=== PATIENT | male | born 1955 | race African-American/Black ===

== ENCOUNTER 2017-09-19 09:48 | Emergency (ER) | payer SELFPAY | END 2017-09-19 10:54 | disposition home or self-care (01) | LOC: ER 09:48 | DX: S46.912A Strain of unspecified muscle, fascia and tendon at shoulder and upper arm level, left arm, initial encounter (principal); X58.XXXA Exposure to other specified factors, initial encounter; Y93.89 Activity, other specified; Y92.89 Other specified places as the place of occurrence of the external cause; Y99.8 Other external cause status | CPT/HCPCS: 99283 ==

== ENCOUNTER 2021-07-10 11:19 | Emergency (ER) | payer MEDICARE, MEDICAID ==
[~2021-07-10] VITALS: Ht 165.1 cm; Wt 81.3 kg
[~2021-07-10 11:19] MED LIST: AMLO-187 PO; ATOR40TA59 PO; BENZ-8 PO; CARV25TA2 PO; CYCL10TA19 PO; DICL50TA4 PO; FURO-68 PO; GLIP2.5T4 PO; IBUP-1060 PO; IRON PO; LEVO250T8 PO; LEXAPRO20 MG PO; LOSA100T14 PO; METF10007 PO; METF500T16 PO; MULT-245 PO; OMEP40CA7 PO; PRED20TA PO; TAMS0.4C97 PO; TRAM50TA PO
[2021-07-10 11:22] VITALS: BP 151/67
[2021-07-10] MEDS ORDERED: ACETAMINOPHEN 500 MG TABLET PO ONE (11:30)
[2021-07-10] MEDS ORDERED: LIDOCAINE/EPI/TETRACAINE TOPICAL GEL 3 ML. TP ONE (11:45)
--- NOTE | 2021-07-10 11:56 | PHYS DOC ---
Past Medical History Past Medical History: Cancer, COPD, Diabetes-Type II, High Cholesterol, H ypertension, DC, Stroke Additional Past Medical Histor: M/W/F dialysis Past Surgical History: No Surgical History Additional Past Surgical Histo: right nephrectomy, back surgery Smoking Status: Never Smoker Alcohol Use: None Drug Use: None General Adult EDM: Chief Complaint: MECHANICAL FALL HPI: HPI: Patient is a 65-year-old male who presents to the emergency department seeking a laceration repair to the left side of his face. Patient states he was walking down some steps when he stumbled, states he did not fall however did bump the left side of his face against the wooden handrail in which he suffered a laceration. Patient states he put direct pressure on the laceration and it quit bleeding. Patient reports his last tetanus immunization was less than 5 years ago. Patient reports a 2 out of 10 pain at the laceration site. Denies loss of consciousness, states he did not become dizzy, denies visual disturbances, denies nausea, vomiting, diarrhea. Denies head pain or neck pain. Denies other physical injuries or pains to his body. Patient states he does take blood pressure medicine and cholesterol medications however does not take a blood thinner, states he does not take aspirin daily. Patient denies other physical complaints or physical concerns. Review of Systems: Review of Systems: 14 body systems of review of systems have been reviewed. See HPI for pertinent positives and negative responses, otherwise all other systems are negative, nonpertinent or noncontributory. Constitutional: Negative except as outlined in HPI above. Skin: Negative except as outlined in HPI above. Eyes: Negative except as outlined in HPI above. HENT: Negative except as outlined in HPI above. Respiratory: Negative except as outlined in HPI above. Cardiovascular: Negative except as outlined in HPI above. GI: Negative except as outlined in HPI above. : Negative except as outlined in HPI above. Musculoskeletal: Negative except as outlined in HPI above. Integument: Negative except as outlined in HPI above. Neurologic: Negative except as outlined in HPI above. Endocrine: Negative except as outlined in HPI above. Lymphatic: Negative except as outlined in HPI above. Psychiatric: Negative except as outlined in HPI above. Heart Score: C/O Chest Pain: No Risk Factors: Risk Factors: DM, Current or recent (<one month) smoker, HTN, HLP, family history of CAD, obesity. Risk Scores: Score 0 - 3: 2.5% MACE over next 6 weeks - Discharge Home Score 4 - 6: 20.3% MACE over next 6 weeks - Admit for Clinical Observation Score 7 - 10: 72.7% MACE over next 6 weeks - Early Invasive Strategies Current Medications: Current Medications Medications (Trade) Dose Ordered Sig/David Start Time Stop Time Status Last Admin Dose Admin Acetaminophen (Tylenol) 1,000 mg 1X ONCE 07/10/21 11:30 07/10/21 11:36 DC 07/10/21 11:42 1,000 MG Tetracaine/ Epinephrine/ Lidocaine (Let ([id number]-[id number]-[id number]) Gel) 3 ml 1X ONCE 07/10/21 11:45 07/10/21 11:50 DC Allergies: Allergies: Allergies Coded Allergies Type Severity Reaction Last Updated Verified No Known Drug Allergies 07/10/21 No Physical Exam: PE: Constitutional: Well developed, well nourished, no acute distress, non-toxic appearance. 65-year-old male in no apparent distress. HENT: Normocephalic, no crepitus appreciated at laceration site, no contusion appreciated at laceration site, patient has a very small superficial skin laceration just lateral to the lateral canthus of the left eye measuring 4 mm, no bleeding appreciated, nonfull skin thickness, no deformities appreciated, no raccoon eyes, no harris sign, bilateral TMs intact and within normal limits. Eyes: Conjunctiva normal, no discharge. Full 6 cardinal eye movements, PERRLA Neck: Normal range of motion, no stridor. No neck pain, no midline spinal cervical pain, full range of motion. Cardiovascular: No cyanosis appreciated, distal cap refill less than 2 seconds. Lungs & Thorax: Patient is in no respiratory distress, no audible adventitious lung sounds appreciated. Abdomen: Nontender, no abnormalities noted. Skin: Warm, dry, no erythema, no rash. See HENT note for focused skin examination Back: No tenderness, no deformities. Extremities: No tenderness, no cyanosis, no clubbing, ROM intact, no edema. Neurologic: Alert and oriented X 3, normal motor function, normal sensory function, no focal deficits noted. Psychologic: Affect normal, judgement normal, mood normal. Current Patient Data: Vital Signs: Vital Signs Date Time Temp Pulse Resp B/P (MAP) Pulse Ox O2 Delivery O2 Flow Rate FiO2 07/10/21 11:22 98.0 96 18 151/67 (95) 98.0 EKG: EKG: [] Radiology/Procedures: Radiology/Procedures: [] Course & Med Decision Making: Course & Med Decision Making Pertinent Labs and Imaging studies reviewed. (See chart for details) 65-year-old male, vital signs reviewed, presents emergency department seeking laceration repair of face. Physical examination consistent with patient's explanation of events. Considered imaging of head however patient did not lose consciousness, did not experience dizziness or syncopal episode, or near syncopal episode, states he "barely bumped his head on the wooden handrail ", did not fall, has no head pain or neck pain except for the site of the laceration. Minor laceration is not full skin thickness, discussed with patient will use Dermabond to repair after cleansing. Patient reports 2 out of 10 head pain at the laceration site only, denies headaches, dizziness, visual disturbances, did not take pain medication prior to arrival to the emergency department. Will give p.o. Tylenol for discomfort. See laceration repair note. Patient gave verbal understanding of glued laceration repair, strict follow-up with primary care for wound evaluation, return to ER precautions and concerns. Signs and symptoms of infection. Patient is amenable to ED discharge planning. Discussed with the patient all findings and diagnostic testing as well as the need to follow-up with their primary care provider for further evaluation and treatment or return to the ED if any new or worsening symptoms. Strict return precautions were also discussed at length, the patient voiced understanding and agreement with the discharge planning. The patient was nontoxic in appearance, in no apparent distress, and hemodynamically stable at the time of disposition. Dragon Disclaimer: [employer] Disclaimer: This electronic medical record was generated, in whole or in part, using a voice recognition dictation system. Laceration Repair Lac Repair Indication: Facial laceration Time: 1130 Confirmed: Patient, procedure, side, and site correct. Consent: Patient, has given verbal consent. Description/repair Procedure: The patient was placed in the appropriate position and anesthesia around the was not indicated for this procedure/laceration repair. The area was then chlorhexidine scrub, vigorously irrigated with normal saline. The laceration was closed with Dermabond skin glue. The wound area was then dressed with left open to air. Complexity: Single layer. Post procedure exam: Circulation, motor, sensory examination intact, bleeding controlled. Total repaired wound length: 4 mm. Other Items: There were no other items The patient tolerated the procedure well. Complications: No complications. Performed by: Sang Hensley, REPORTING DEVELOPER-C Supervision: Dr. Zaidi was present for consult regarding the critical aspects of the procedure including closure and post procedure exam. Total time: 5 minutes. Departure Departure Impression: Primary Impression: Superficial laceration of face Disposition: HOME / SELF CARE / HOMELESS Condition: GOOD Referrals: NO PCP (PCP) Patient Instructions: Facial Laceration Additional Instructions: You were seen today in the emergency department after bumping your head on a handrail just prior to arrival. You had indicated you are not on blood thinners, you did not lose consciousness, we discussed imaging of your head and brain, you and I made a joint decision to defer this as you feel this was a very minor injury. You had suffered a 0.4 cm laceration to the left side of your face. This was glued with a product called Dermabond. This Dermabond acts much like superglue, you may notice it peeling off your face in approximately 5 days. You may gently peel any excess material of your face after 5 days. As we discussed, do not apply any lotions or oils or ointments to the laceration site. You may place a Band-Aid over this glued repair however it is not necessary. Please follow-up with your family care physicians at the family care clinic for reevaluation and ongoing wound care. Please return to the emergency department immediately for sudden increase of severe head pain, dizziness, loss of consciousness or passing out spells, or other concerns. Thank you for vi siting our Emergency Department. It was a pleasure taking care of you today in the emergency department and we appreciate you trusting us with your care. If any additional problems come up don't hesitate to return to visit us. Please follow up with your primary care provider so they can plan additional care if needed and know about the problem that you had. If symptoms worsen come back to the Emergency Department. Any concerning symptoms that start such as chest pain, shortness of air, weakness or numbness on one side of the body, running high fevers or any other concerning symptoms return to the ER. Laceration Repair Lac Repair Indication: [] Procedure: The patient was placed in the appropriate position and anesthesia around the [LAC WAS/WERE] [ANESTHESIA]. The area was then [CLEANSED/DEBRIDED]. The laceration was [LAC CLOSURE]. [ADDITIONAL LACS] The wound area was then dressed with [WOUND COVERING]. Total repaired wound length: [TOTAL REPAIR LENGTH]. Other Items: [OTHER ITEMS] The patient tolerated the procedure [TOLERATED]. Complications: [COMPLICATIONS]. SANG WIGGINS APRN Jul 10, 2021 11:56
== END 2021-07-10 12:00 | disposition home or self-care (01) ==
LOC: ER 11:19
DX: S01.81XA Laceration without foreign body of other part of head, initial encounter (principal); J44.9 Chronic obstructive pulmonary disease, unspecified; E11.9 Type 2 diabetes mellitus without complications; E78.00 Pure hypercholesterolemia, unspecified; I10 Essential (primary) hypertension; I25.2 Old myocardial infarction; Z86.73 Personal history of transient ischemic attack (TIA), and cerebral infarction without residual deficits; Z99.2 Dependence on renal dialysis; W22.03XA Walked into furniture, initial encounter; Y93.01 Activity, walking, marching and hiking; Y92.89 Other specified places as the place of occurrence of the external cause; Y99.8 Other external cause status
CPT/HCPCS: 12011; 99283